=== PATIENT | female | born 1995 | race Caucasian/White ===

== ENCOUNTER 2020-09-01 22:29 | Emergency (ER) | payer SELFPAY ==
[~2020-09-01] VITALS: Ht 165.1 cm; Wt 81.8 kg
[2020-09-01 22:36] VITALS: BP 135/74
--- NOTE | 2020-09-01 23:29 | NUR ---
OVERCASTER: PT. TO ROOM FROM LOBBY AT THIS TIME.
[2020-09-02] MEDS ORDERED: HYDROcodone/APAP 5/325 TABLET PO ONE
[2020-09-02] MEDS ORDERED: KETOROLAC 30 MG/1 ML IM ONE
[2020-09-02] MEDS ORDERED: BACITRACIN OINT 500U/GM, 28GM EXT SCH
[2020-09-02] MEDS ORDERED: HYDROcodone/APAP 5/325 TABLET ONE (00:01)
[2020-09-02] MEDS ORDERED: KETOROLAC 30 MG/1 ML ONE (00:01)
--- NOTE | 2020-09-02 00:19 | NUR ---
WOUND DRESSED BY MARQUITA, MEDICATED BY THIS RN PER JUN, PT D/C TO HOME IN NAD
== END 2020-09-02 00:22 | disposition home or self-care (01) ==
LOC: ED 23:33
DX: T24.212A Burn of second degree of left thigh, initial encounter (principal); T24.222A Burn of second degree of left knee, initial encounter; T31.0 Burns involving less than 10% of body surface; X12.XXXA Contact with other hot fluids, initial encounter; Y93.89 Activity, other specified; Y92.89 Other specified places as the place of occurrence of the external cause; Y99.8 Other external cause status
CPT/HCPCS: 16000; 96372; 99283; J1885